=== PATIENT | male | born 1955 | race Hispanic/Latino ===

== ENCOUNTER 2017-10-17 07:27 | Day surgery (SDC) | payer OTHER ==
[2017-10-15 17:00] VITALS: BP 145/83
[~2017-10-17] VITALS: Ht 182.9 cm; Wt 104.5 kg
[2017-10-17] VITALS (18 sets, daily range): BP systolic 106–142; BP diastolic 60–86
[2017-10-17] MEDS: CEFTRIAXONE SODIUM 1 GM IVP SCH ×2 (06:00→09:36)
[~2017-10-17 07:27] MED LIST: CETI-101 PO; TAMS-1 PO
[2017-10-17] MEDS ORDERED: LACTATED RINGERS 1000ML 1,000 ML IV ONE (08:05)
[2017-10-17] MEDS ORDERED: PROPOFOL 10 MG/ML 20ML VIAL IV ONE (09:27)
[2017-10-17] MEDS ORDERED: MIDAZOLAM HCL 1 MG/ML 2ML VIAL ONE ×2 (09:27→11:14)
[2017-10-17] MEDS ORDERED: FENTANYL CITRATE PF 50 MCG/1 ML 2ML VIAL ONE ×2 (09:28→10:44)
[2017-10-17] MEDS ORDERED: NEOSTIGMINE METHYLSULFATE 1MG/ML IV ONE (09:49)
[2017-10-17] MEDS ORDERED: OPIUM/BELLADONNA ALKALOIDS 1 EACH SUPP.RECT RC ONE (11:01)
[2017-10-17] MEDS ORDERED: PHENYLEPHRINE HCL 10 MG/ML 1ML VIAL IV ONE (11:06)
[2017-10-17] MEDS ORDERED: SODIUM CHLORIDE 0.9% 10 ML VIAL ONE (11:06)
[2017-10-17] MEDS ORDERED: ONDANSETRON HCL MDV 20ML 2 MG/ML VIAL ONE (11:06)
[2017-10-17] MEDS ORDERED: LIDOCAINE HCL MPF 1% 5ML VIAL ONE (11:06)
[2017-10-17] MEDS ORDERED: ROCURONIUM BROMIDE 10MG/1ML 5ML VL ONE (11:06)
[2017-10-17] MEDS ORDERED: MEPERIDINE-PF 25 MG/ML SYG ONE (11:09)
[2017-10-17] MEDS ORDERED: PHENAZOPYRIDINE HCL 200 MG TABLET ONE (12:34)
== END 2017-10-17 13:00 | disposition home or self-care (01) ==
LOC: DAH 07:27
PROVIDERS: ATTEND Urology
DX: N40.1 Benign prostatic hyperplasia with lower urinary tract symptoms (principal); N13.8 Other obstructive and reflux uropathy; Z88.8 Allergy status to other drugs, medicaments and biological substances; Z90.49 Acquired absence of other specified parts of digestive tract; Z98.890 Other specified postprocedural states; Z79.899 Other long term (current) drug therapy
CPT/HCPCS: 52648; 88305; A4218; A4340; A4354; A4358; A4510; A4600; J0696; J2175; J2250 ×2; J2370; J2704; J2710; J3010 ×2; J3490 ×2; J7030; J7120

== ENCOUNTER 2021-06-29 08:09 | Day surgery (SDC) | payer BC ==
[2021-06-28 09:33] VITALS: BP 129/75
[2021-06-29] VITALS (15 sets, daily range): BP systolic 114–144; BP diastolic 67–83
[~2021-06-29] VITALS: Ht 182.9 cm; Wt 93.4 kg
[~2021-06-29 08:09] MED LIST changes: +AEC81 PO; +ATOR40TA69 PO; +CARV3.12 PO; -CETI-101 PO
[2021-06-29] MEDS ORDERED: LACTATED RINGERS 1000ML 1,000 ML IV ONE (10:31)
[2021-06-29] MEDS: CEFTRIAXONE 1G VIAL IVP SCH ×2 (10:58→12:58)
[2021-06-29] MEDS ORDERED: MIDAZOLAM HCL 1 MG/ML 2ML VIAL ONE ×2 (11:36→12:42)
[2021-06-29] MEDS ORDERED: PROPOFOL 10 MG/ML 20ML VIAL IV ONE (11:36)
[2021-06-29] MEDS ORDERED: LIDOCAINE PF 100MG/5ML (2%) SYRINGE 5ML ONE (11:36)
[2021-06-29] MEDS ORDERED: GLYCOPYRROLATE 1 MG/5 ML SYRINGE ONE (11:38)
[2021-06-29] MEDS ORDERED: FENTANYL CITRATE PF 50 MCG/1 ML 2ML VIAL ONE (11:42)
[2021-06-29] MEDS ORDERED: EPHEDRINE SULFATE 50 MG/ML AMPULE ONE (11:59)
[2021-06-29] MEDS ORDERED: VASOPRESSIN 20 UNITS/ML 1ML VIAL ONE (12:08)
[2021-06-29] MEDS ORDERED: OPIUM/BELLADONNA ALKALOIDS 1 EACH SUPP.RECT RC ONE (12:29)
[2021-06-29] MEDS ORDERED: ONDANSETRON 4MG INJ ONE (12:35)
[2021-06-29] MEDS ORDERED: PHENAZOPYRIDINE HCL 200 MG TABLET ONE (13:41)
== END 2021-06-29 14:20 | disposition home or self-care (01) ==
LOC: DAH 08:09
PROVIDERS: ATTEND Urology
DX: N21.0 Calculus in bladder (principal); Z20.822 Contact with and (suspected) exposure to COVID-19; N40.0 Benign prostatic hyperplasia without lower urinary tract symptoms; I10 Essential (primary) hypertension; I45.10 Unspecified right bundle-branch block; E78.5 Hyperlipidemia, unspecified; I25.2 Old myocardial infarction; Z79.82 Long term (current) use of aspirin; Z79.899 Other long term (current) drug therapy; N32.0 Bladder-neck obstruction
CPT/HCPCS: 36415; 52317; 52648; 82360; 87635; 93005; A4215; A4221; A4222; A4223; A4340; A4358; A4510; A4600; A4663; C1758; C9803; J0696; J2001; J2250 ×2; J2405; J2704; J3010; J3490 ×3; J7120 ×2